=== PATIENT | female | born 1950 | race Caucasian/White ===

== ENCOUNTER 2019-05-16 08:20 | Outpatient (CLI) | payer MEDICARE ==
[2019-05-19] MEDS ORDERED: LACT1CAP37 PO (07:06)
[2019-05-19] MEDS ORDERED: FISH1CAP PO (07:06)
[2019-05-19] MEDS ORDERED: BONE STRENGTH PO (07:06)
[2019-05-19] MEDS ORDERED: LORA10TA75 PO (07:06)
[2019-05-19] MEDS ORDERED: NERVE COMPLEX PO (07:06)
[2019-05-19] MEDS ORDERED: CYAN100014 PO (07:06)
[2019-05-19] MEDS ORDERED: TURM1POW2 PO (07:06)
[2019-05-19] MEDS ORDERED: MULT1TAB60 PO (07:06)
[2019-05-19] MEDS ORDERED: CHOL100012 PO (07:06)
== END 2019-05-16 23:59 | disposition home or self-care (01) ==
LOC: STAR 08:20
PROVIDERS: ATTEND Orthopaedic Surgery
DX: Z01.818 Encounter for other preprocedural examination (principal); M17.12 Unilateral primary osteoarthritis, left knee; I51.7 Cardiomegaly
CPT/HCPCS: 87081; 93005

== ENCOUNTER 2019-05-23 11:30 | Observation (INO) | payer MEDICARE ==
[~2019-05-23] VITALS: Ht 172.7 cm; Wt 70.0 kg
== END 2019-05-24 15:10 | disposition home or self-care (01) ==
LOC: OR 11:30 → 4NOR 18:21 → OUT 19:33 → 4NOR 19:34
PROVIDERS: ADMIT Orthopaedic Surgery; ATTEND Orthopaedic Surgery
DX: M17.12 Unilateral primary osteoarthritis, left knee (principal); Z87.891 Personal history of nicotine dependence; Z85.3 Personal history of malignant neoplasm of breast; Z88.6 Allergy status to analgesic agent; Z88.2 Allergy status to sulfonamides; Z88.8 Allergy status to other drugs, medicaments and biological substances; Z79.899 Other long term (current) drug therapy
CPT/HCPCS: 27447; 36415; 73560; 85014; 85018; 96365; 96366; 96375; 96376; 97116; 97150; 97161; C1713; C1776; G0378; J0171; J0330; J0690; J1100; J2060; J2175; J2250; J2270; J2405; J2704; J2795; J3010; J3490; J7120; Q0162; S0020; J1885